=== PATIENT | female | born 1945 | race Caucasian/White ===

== ENCOUNTER 2020-09-30 15:31 | Inpatient (IN) | payer MEDICARE ==
[~2020-09-30] VITALS: Ht 144.8 cm; Wt 59.6 kg
[2020-09-30 15:48] VITALS: BP 100/59
[2020-09-30] MEDS ORDERED: JANTOVEN5 MG PO (15:56)
[2020-09-30] MEDS ORDERED: LISINOPRIL20 MG PO (15:56)
[2020-09-30] MEDS ORDERED: TOPROL XL50 MG (15:56)
[2020-09-30] MEDS ORDERED: CARTIA XT180 M1 PO (15:57)
[2020-09-30] MEDS ORDERED: SPIRONOLACTONE25 MG PO (15:57)
[2020-09-30] MEDS ORDERED: HYDROCHLOROTH12.5 M2 PO (15:58)
[2020-09-30] MEDS ORDERED: PROTONIX40 M2 PO (15:58)
[2020-09-30] MEDS ORDERED: CALCIUM500 MG PO (15:59)
[2020-09-30] MEDS ORDERED: IRON18 M1 PO (15:59)
[2020-09-30] MEDS ORDERED: FOLIC ACID1 MG PO (15:59)
[2020-09-30] MEDS ORDERED: SLOW FE142 MG PO (16:00)
[2020-09-30 16:02] LABS: HEMATOCRIT 37.6 % (37.0-47.0); HEMOGLOBIN 12.7 gm/dL (12.0-15.0); MCH 32.7 pg (26.0-34.0); MCHC 33.7 g/dL (28.0-37.0); MCV 97.1 fL (80.0-100.0); MPV 7.8 fl. (7.2-11.1); NUCLEATED RBCS 0 /100WBC; PLATELET COUNT* 475 thou/uL (150-400); RBC 3.87 mil/uL (4.20-5.00); RDW-CV 14.2 % (10.5-14.5); WBC 22.8 thou/uL (4.0-11.0)
[2020-09-30 16:11] LABS: CALCIUM 8.7 mg/dL (8.5-10.1); CREATININE 2.9 mg/dL (0.6-1.3); POTASSIUM 2.8 mmol/L (3.5-5.1)
[2020-09-30 16:21] LABS: ALBUMIN 3.2 g/dL (3.4-5.0); TOTAL BILIRUBIN 0.8 mg/dL (<0.1-1.0); TOTAL PROTEIN 7.4 g/dL (6.4-8.2)
[2020-09-30 17:03] LABS: ABSOLUTE EOSINOPHILS 0.2 thou/uL (0.0-0.7); ABSOLUTE LYMPHOCYTES 1.4 thou/uL (0.8-5.3); ABSOLUTE MONOCYTES 3.6 thou/uL (0.0-1.2); ABSOLUTE NEUTROPHILS 17.6 thou/uL (1.6-8.1); PLATELET ESTIMATE ADEQUATE
--- NOTE | 2020-09-30 17:16 | EKG ---
[place] [address] ELECTROCARDIOGRAM REPORT Name: NICOLETTE ROCHA Tiara Room: [address] [place] .R.#: [id number] Admission: 09/30/20 Attend Phys: Cecy De La Rosa, Discharge: Date of : 49 Date of Service: 09/30/20 1606 Report #: [id number] THIS REPORT FOR: //name// [facility] ED Test Date: 2020-09-30 Test Time: 16:06:36 Pat Name: NICOLETTE ROCHA Department: Room: [facility] Gender: F [employer] Instructor: JOSE : 1945 Requested By: Smooth Hunt Order Number: [id number] MD: Anupam Ramirez Measurements Intervals [place] Rate: 88 P: MN: QRS: 57 QRSD: 92 T: -85 QT: 397 QTc: 481 Interpretive Statements Atrial fibrillation LVH with secondary repolarization abnormality No previous ECG available for comparison Electronically Signed On 09-30-2020 17:15:44 CDT by Anupam Ramirez [email or web address] <ELECTRONICALLY SIGNED> By: Anupam Ramirez MD, [facility] 09/30/20 1715 1606 1606 Anupam Ramirez MD, [facility] /EPI
[2020-09-30 18:17] LABS: URINE BILIRUBIN NEGATIVE (Negative); URINE BLOOD TRACE (Negative); URINE CLARITY CLEAR; URINE COLOR YELLOW; URINE GLUCOSE-RANDOM NEGATIVE (Negative); URINE KETONES NEGATIVE (Negative); URINE LEUKOCYTES-REFLEX NEGATIVE (Negative); URINE NITRITE-REFLEX NEGATIVE (Negative); URINE PROTEIN NEGATIVE (Negative); URINE UROBILINOGEN 0.2 E.U./dl (0.2-1.0)
[2020-09-30 20:25] VITALS: BP 94/53
[2020-09-30 20:30] VITALS: BP 119/61
[2020-09-30 20:51] LABS: INR 9.8; PROTIME > 90.0 Seconds (9.20-11.50)
[2020-09-30] MEDS ORDERED: WARFARIN SODIU2.5 MG PO (21:24)
[2020-10-01 04:00] VITALS: BP 99/62
[2020-10-01 05:14] LABS: HEMATOCRIT 32.3 % (37.0-47.0); HEMOGLOBIN 10.9 gm/dL (12.0-15.0); MCH 33.2 pg (26.0-34.0); MCHC 33.8 g/dL (28.0-37.0); MCV 98.3 fL (80.0-100.0); MPV 7.6 fl. (7.2-11.1); RBC 3.29 mil/uL (4.20-5.00); RDW-CV 14.5 % (10.5-14.5); WBC 16.2 thou/uL (4.0-11.0)
[2020-10-01 05:27] LABS: ALBUMIN 2.7 g/dL (3.4-5.0); MAGNESIUM 1.5 mg/dL (1.8-2.4); TOTAL BILIRUBIN 0.8 mg/dL (<0.1-1.0); TOTAL PROTEIN 6.3 g/dL (6.4-8.2)
[2020-10-01 05:28] LABS: CREATININE 1.9 mg/dL (0.6-1.3); POTASSIUM 4.3 mmol/L (3.5-5.1)
[2020-10-01 05:57] LABS: PROTIME > 90.0 Seconds (9.20-11.50)
[2020-10-01 05:59] LABS: INR > 8.0
[2020-10-01 08:48] VITALS: BP 123/63
[2020-10-01 11:57] VITALS: BP 131/61
--- NOTE | 2020-10-01 13:48 | 2DMMODE ---
[place] [address] 2 D/M-MODE ECHOCARDIOGRAM Name: ROCHA,NICOLETTE Menjivar Room: [address] IN [facility]#: [id number] Admission: 09/30/20 Attend Phys: Cecy De La Rosa, Discharge: Date of : 49 Date of Service: 10/01/20 1348 Report #: [id number] THIS REPORT FOR: cc: FAM - No family physician/PCP FAM - No family physician/PCP Anupam Ramirez MD [facility] ~ APPROVED REPORT Study performed: 10/01/2020 10:24:31 EXAM: Comprehensive 2D, Doppler, and color-flow Echocardiogram Patient Location: In-Patient Room #: [facility] Status: routine BSA: 1.48 HR: 93 bpm BP: 99/62 mmHg Rhythm: NSR Other Information Study Quality: Good Indications elevated bnp 2D Dimensions IVSd: 8.02 (7-11mm) LVOT Diam: 16.49 (18-24mm) LVDd: 38.83 mm PWd: 8.65 (7-11mm) Ascending Ao: 26.47 (22-36mm) LVDs: 28.09 (25-40mm) Aortic Root: 27.62 mm Volumes Left Atrial Volume (Systole) LA ESV Index: 45.50 mL/m2 Aortic Valve AoV Peak Rubén.: 2.15 m/s AO Peak Gr.: 18.46 mmHg LVOT Max P.85 mmHg AO Mean Gr.: 8.65 mmHg LVOT Mean P.86 mmHg LVOT Max V: 0.98 m/s AO V2 VTI: 34.63 cm LVOT Mean V: 0.62 m/s KAYLI (VTI): 1.07 cm2 LVOT V1 VTI: 17.31 [place] [address] 2 D/M-MODE ECHOCARDIOGRAM Name: NICOLETTE ROCHA Room: [address]#: [id number] Admission: 09/30/20 Attend Phys: Cecy De La Rosa, Discharge: Date of : 49 Date of Service: 10/01/20 1348 Report #: [id number] TDI Medial E' Rubén.: 0.09 m/s Lateral E' Rubén.: 0.14 m/s Pulmonary Valve PV Peak Rubén.: 0.91 m/s PV Peak Gr.: 3.34 mmHg Tricuspid Valve RAP Estimate: 5.00 mmHg TR Peak Gr.: 32.44 mmHg RVSP: 37.00 mmHg PA Pressure: 37.00 mmHg Left Ventricle The left ventricle is normal size. There is normal LV segmental wall motion. There is normal left ventricular wall thickness. Left ventricular systolic function is normal. LVEF is >70%. This study is not technically sufficient to allow evaluation of the LV diastolic function. Right Ventricle Right ventricle is mildly dilated. The right ventricular systolic function is normal. Atria Left atrium is moderately dilated. Right atrium is moderately dilated. Aortic Valve Mild aortic valve sclerosis. Trace aortic regurgitation. Mild aortic stenosis. Mitral Valve There is a mechanical mitral valve. There is no mitral valve regurgitation noted. No evidence of mitral valve stenosis. Tricuspid Valve The tricuspid valve is normal in structure. Mild pulmonary hypertension. Moderate to severe tricuspid regurgitation. Pulmonic Valve The pulmonary valve is normal in structure. There is no pulmonic valvular regurgitation. Great Vessels The aortic root is normal in size. IVC is normal in size and collapses >50% [place] [address] 2 D/M-MODE ECHOCARDIOGRAM Name: NICOLETTE ROCHA Tiara Room: [address]#: [id number] Admission: 09/30/20 Attend Phys: Cecy De La Rosa, Discharge: Date of : 49 Date of Service: 10/01/20 1348 Report #: [id number] Pericardium There is no pericardial effusion. <Conclusion> The left ventricle is normal size. There is normal left ventricular wall thickness. Left ventricular systolic function is normal. LVEF is >70%. This study is not technically sufficient to allow evaluation of the LV diastolic function. Right ventricle is mildly dilated. The right ventricular systolic function is normal. Left atrium is moderately dilated. Right atrium is moderately dilated. Mild aortic valve sclerosis. Mild aortic stenosis. There is a mechanical mitral valve. There is no mitral valve regurgitation noted. No evidence of mitral valve stenosis. Mild pulmonary hypertension. Moderate to severe tricuspid regurgitation. IVC is normal in size and collapses >50% with inspiration. <ELECTRONICALLY SIGNED> By: Anupam Ramirez MD, FACC 10/01/20 1348 1348 1348 Anupam Ramirez MD, FACC /INF
[2020-10-01 16:43] VITALS: BP 117/53
[2020-10-02] VITALS: BP 94/45
[2020-10-02 04:00] VITALS: BP 93/39
[2020-10-02 04:32] LABS: HEMATOCRIT 28.7 % (37.0-47.0); HEMOGLOBIN 9.9 gm/dL (12.0-15.0); MCH 33.8 pg (26.0-34.0); MCHC 34.4 g/dL (28.0-37.0); MCV 98.3 fL (80.0-100.0); MPV 7.7 fl. (7.2-11.1); RBC 2.92 mil/uL (4.20-5.00); RDW-CV 14.1 % (10.5-14.5); WBC 10.4 thou/uL (4.0-11.0)
[2020-10-02 04:35] LABS: INR 1.3
[2020-10-02 04:52] LABS: ALBUMIN 2.6 g/dL (3.4-5.0); CALCIUM 8.1 mg/dL (8.5-10.1); MAGNESIUM 1.7 mg/dL (1.8-2.4); POTASSIUM 3.6 mmol/L (3.5-5.1); TOTAL BILIRUBIN 0.9 mg/dL (<0.1-1.0); TOTAL PROTEIN 5.9 g/dL (6.4-8.2)
[2020-10-02 08:00] VITALS: BP 120/37
--- NOTE | 2020-10-02 09:08 | CON ---
[address] [address] CONSULTATION Name: NICOLETTE ROCHA Room: [address] [place] .R.#: [id number] Admission: 09/30/20 Attend Phys: Cecy De La Rosa MD Discharge: Date of : 49 Report #: [id number] THIS REPORT FOR: cc: FAM - No family physician/PCP FAM - No family physician/PCP Anupam Ramirez MD [facility] ~ CARDIOLOGY CONSULTATION INDICATION: History of mitral valve replacement. HISTORY OF PRESENT ILLNESS: The patient admitted with hematochezia and diarrhea. She was found to have a supratherapeutic INR of 9.6. The patient received oral vitamin K x 2. She is now admitted with continued hematochezia and diarrhea. She remains hemodynamically stable at this time. INR remains greater than 8.0. She is not having any significant chest pain or shortness of breath. She states she did not have any bypasses with her mitral valve replacement. She has been taking warfarin chronically without much difficulty. She has been checking her INR every 2 weeks. She states that generally her INR stays fairly stable with minor adjustments to dietary intake and/or changes in medication doses. PAST MEDICAL HISTORY: 1. Status post mechanical aortic, mitral valve replacement. 2. Chronic atrial fibrillation. 3. Hypertension. FAMILY HISTORY: Noncontributory. SOCIAL HISTORY: The patient is a lifelong nonsmoker. She does not drink alcohol. ALLERGIES: None documented. MEDICATIONS: Warfarin 5 mg alternating with 2.5 mg, metoprolol succinate 50 mg b.i.d., lisinopril 40 mg daily, diltiazem 180 mg q.a.c., spironolactone 25 mg as directed, hydrochlorothiazide 12.5 mg as directed, Protonix 40 mg b.i.d., calcium carbonate 1200 mg p.o. as directed, folate 400 mcg p.o. daily, iron tablet replacement daily, slow iron 325 mg daily. REVIEW OF SYSTEMS: Positive only for hematochezia. The patient is otherwise without complaint. PHYSICAL EXAMINATION: VITAL SIGNS: Stable. Blood pressure 123/63, pulse is in the 80s and irregular. GENERAL: This is a pleasant elderly female, in no [place] [address] CONSULTATION Name: NICOLETTE ROCHA Room: [address]#: [id number] Admission: 09/30/20 Attend Phys: Cecy De La Rosa MD Discharge: Date of : 49 Report #: [id number]. HEENT: Head is normocephalic, atraumatic. Extraocular muscles intact. Mucous membranes are moist. NECK: Shows no jugular venous distention. There are no carotid bruits. CHEST: Reveals clear lung anderson. CARDIAC: Reveals an irregularly irregular rhythm with rate control. There is a mechanical mitral valve click present. I do not appreciate murmur. ABDOMEN: Reveals normal bowel sounds. The abdomen is soft and nontender. EXTREMITIES: Shows no edema. SKIN: Dry. LABORATORY DATA: Labs are reviewed. Sodium 137, potassium 4.3, chloride 106, bicarbonate 19, BUN 46, creatinine 1.9, serum glucose 93. Troponin less than 0.06 on 3 separate occasions. INR presently greater than 8.0. White blood cell count 16.2, hemoglobin 10.9, platelet count 425,000. Chest x-ray shows no acute cardiopulmonary abnormality. Previous bypass surgery changes noted. Mechanical mitral valve noted. IMPRESSION AND RECOMMENDATIONS: 1. Lower gastrointestinal bleeding with hematochezia. The patient is supratherapeutic with INR. The patient has been reversed with oral vitamin K. Bleeding persists; however, she remains hemodynamically stable. Hemoglobin appears stable. Repeat INR in a.m. No need for more aggressive reversal at this time. 2. Mechanical mitral valve. INR to remain between 2 and 3.5. Once the patient's INR begins to decline after recent bolus of vitamin K, I would recommend weight-based Lovenox b.i.d. until INR returns to therapeutic of 2.0-3.5. 3. Chronic atrial fibrillation, rate adequately controlled. The patient is chronically anticoagulated. Continue home medications with the exception of warfarin. We will resume warfarin once INR has been adequately reversed and bleeding stopped. 4. Hypertension, presently adequately controlled on current cardiac regimen. <ELECTRONICALLY SIGNED> By: Anupam Ramirez MD, FACC 10/02/20 0908 1022 [id number] Ramirez MD, FACC /nt
[2020-10-02 12:09] VITALS: BP 28/63
[2020-10-02 15:40] VITALS: BP 124/53
[2020-10-02 21:55] VITALS: BP 162/59
[2020-10-03 04:00] VITALS: BP 119/54; BP 160/67
[2020-10-03 04:28] LABS: HEMATOCRIT 28.3 % (37.0-47.0); HEMOGLOBIN 9.4 gm/dL (12.0-15.0); MCH 32.8 pg (26.0-34.0); MCHC 33.4 g/dL (28.0-37.0); MCV 98.2 fL (80.0-100.0); MPV 7.5 fl. (7.2-11.1); RBC 2.88 mil/uL (4.20-5.00); RDW-CV 14.4 % (10.5-14.5); WBC 17.9 thou/uL (4.0-11.0)
[2020-10-03 05:01] LABS: CREATININE 0.9 mg/dL (0.6-1.3); MAGNESIUM 1.4 mg/dL (1.8-2.4); POTASSIUM 3.6 mmol/L (3.5-5.1)
[2020-10-03 05:04] LABS: INR 1.3; PROTIME 13.5 Seconds (9.20-11.50)
[2020-10-03 07:42] LABS: % SATURATION 27 % (20-39); IRON 44 ug/dL (50-175)
[2020-10-03 08:00] VITALS: BP 145/70
[2020-10-03] MEDS ORDERED: AUGMENTIN 875-1 EACH PO (09:21)
[2020-10-03] MEDS ORDERED: WARFARIN SODIUM5 MG PO (09:21)
[2020-10-03] MEDS ORDERED: ENOXAPARIN60 MG/0.1 SUBQ (09:21)
[2020-10-03 10:42] LABS: ABSOLUTE BASOPHILS 0.1 thou/uL (0.0-0.2); ABSOLUTE EOSINOPHILS 0.2 thou/uL (0.0-0.7); ABSOLUTE MONOCYTES 1.8 thou/uL (0.0-1.2); ABSOLUTE NEUTROPHILS 13.3 thou/uL (1.6-8.1); BASOPHILS 0.6 %; HEMATOCRIT 31.3 % (37.0-47.0); HEMOGLOBIN 10.5 gm/dL (12.0-15.0); LYMPHOCYTES 6.2 %; MCH 32.9 pg (26.0-34.0); MCHC 33.5 g/dL (28.0-37.0); MCV 98.2 fL (80.0-100.0); MONOCYTES 10.8 %; MPV 7.3 fl. (7.2-11.1); NUCLEATED RBCS 0 /100WBC; PLATELET COUNT* 388 thou/uL (150-400); POLYS 81.4 %; RBC 3.19 mil/uL (4.20-5.00); RDW-CV 14.4 % (10.5-14.5); WBC 16.3 thou/uL (4.0-11.0)
[2020-10-03 10:52] VITALS: BP 145/70
[2020-10-03 12:46] VITALS: BP 120/55
[2020-10-03 17:04] VITALS: BP 131/51
[2020-10-03 20:00] VITALS: BP 153/109
[2020-10-04 02:20] VITALS: BP 136/71
[2020-10-04 04:30] LABS: HEMATOCRIT 27.5 % (37.0-47.0); HEMOGLOBIN 9.2 gm/dL (12.0-15.0); MCHC 33.6 g/dL (28.0-37.0); MCV 98.3 fL (80.0-100.0); MPV 7.8 fl. (7.2-11.1); RBC 2.8 mil/uL (4.20-5.00); RDW-CV 14.2 % (10.5-14.5); WBC 12.3 thou/uL (4.0-11.0)
[2020-10-04 04:50] LABS: CALCIUM 7.7 mg/dL (8.5-10.1); CREATININE 0.7 mg/dL (0.6-1.3); POTASSIUM 3.1 mmol/L (3.5-5.1)
[2020-10-04 06:05] LABS: PROTIME 20.9 Seconds (9.20-11.50)
[2020-10-04 06:06] LABS: INR 2.1
[2020-10-04 08:00] VITALS: BP 163/68
[2020-10-04 14:37] VITALS: BP 145/70
[2020-10-06 21:16] LABS: PROTIME 13.8 Seconds (9.20-11.50)
== END 2020-10-04 14:55 | disposition home health service (06) | DRG 871 ==
LOC: M.ERS 15:31 → M.TBA-ER 17:11 → M.2W 17:11
PROVIDERS: Family Medicine; Internal Medicine Gastroenterology; ADMIT Internal Medicine; ATTEND Internal Medicine
DX: A41.9 Sepsis, unspecified organism (principal); K57.33 Diverticulitis of large intestine without perforation or abscess with bleeding; N17.0 Acute kidney failure with tubular necrosis; I48.20 Chronic atrial fibrillation, unspecified; D68.59 Other primary thrombophilia; E87.1 Hypo-osmolality and hyponatremia; E86.0 Dehydration; I10 Essential (primary) hypertension; E87.6 Hypokalemia; Z20.822 Contact with and (suspected) exposure to COVID-19; Z79.899 Other long term (current) drug therapy; Z95.4 Presence of other heart-valve replacement